=== PATIENT | female | born 1985 | race Caucasian/White ===

== ENCOUNTER → 2020-01-02 | Outpatient (CLI) | payer OTHER ==
[~2020-01-02] VITALS: Ht 157.5 cm; Wt 68.2 kg
[~2020-01-02] MED LIST: LIDOCAINE 1% INJ 20 ML 20 ML VIAL INJ ONE
--- NOTE | 2020-01-02 11:11 | Diagnostic Imaging Report ---
INDICATION: Enlarged right level 2 lymph node. Patient presents for ultrasound-guided fine needle aspiration. Patient brought to the procedure and placed on table in the supine position. Ultrasound imaging of the right neck was performed to evaluate appropriate entry site. The right neck was then prepped and draped in usual sterile fashion. Small amount of 1% lidocaine was utilized for local anesthesia. A total of 4 passes were made into the enlarged level 2 lymph node near the angle of the mandible utilizing 25-gauge needles and finding laceration technique. Needle was removed and hemostasis was obtained. Patient tolerated the procedure well. IMPRESSION: Successful ultrasound-guided fine needle aspiration of enlarged right neck level 2 lymph node. Pathology results are currently pending. Dictated by: Dictated on workstation # [id number]
--- NOTE | 2020-01-02 11:12 | Diagnostic Imaging Report ---
INDICATION: Enlarged left neck level 2 lymph node. Patient presents for ultrasound guided fine needle aspiration. DETAILS OF PROCEDURE: Patient brought to the procedure room and placed on a table in supine position. Ultrasound imaging of the left neck was performed to evaluate appropriate entry site. Left neck was then prepped and draped in usual sterile fashion. A small amount of 1% lidocaine was utilized for local anesthesia. Total of four passes were made into the enlarged left lymph node utilizing 25-gauge needles and fine-needle aspiration technique. Hemostasis was obtained using manual compression. Patient tolerated the procedure well and left the department in stable condition. IMPRESSION: Successful ultrasound-guided fine needle aspiration of enlarged left neck level 2 lymph node. Pathology results are currently pending. Dictated by: Dictated on workstation # [id number]
== END ==
LOC: RAD 12-24 09:08
PROVIDERS: ATTEND Otolaryngology
DX: C73 Malignant neoplasm of thyroid gland (principal); R59.0 Localized enlarged lymph nodes